=== PATIENT | female | born 1970 | race Caucasian/White ===

== ENCOUNTER → 2019-12-14 06:58 | Outpatient (CLI) | payer BC, SELFPAY ==
--- NOTE | ~2019-12-14 | XR_ITS ---
EXAMINATION: XR cervical spine 4-5V EXAM DATE: 12/14/2019 08:42 INDICATION: Neck pain. TECHNIQUE: Cervical spine frontal, lateral, lateral swimmers, and open-mouth odontoid projections. There is no prior study for comparison. FINDINGS: The vertebral bodies are aligned in the AP dimension. Vertebral body and disc heights are well-maintained. Evidence of mild to moderate cervical arthropathy. Probably some component of neural foraminal stenosis at C5-6 from uncovertebral joint disease. Lung apices are clear. The odontoid pro cess is intact. The lateral masses of C1 line up with C2. Prevertebral soft tissue and pre-dens spac e are within normal limits. IMPRESSION: 1. Mild to moderate cervical arthropathy. Reviewed, dictated and finalized at location B.
== END ==
DX: M54.2 Cervicalgia (principal)
CPT/HCPCS: 72050

== ENCOUNTER → 2020-07-27 15:57 | Outpatient (CLI) | payer BC, SELFPAY ==
--- NOTE | ~2020-07-27 | MM_ITS ---
EXAMINATION: MM screening [facility] BI w [facility] HISTORY: Screening mammogram TECHNIQUE: Craniocaudal and mediolateral oblique 3-D tomosynthesis images were obtained and synthetic 2-D images were generated. CAD analysis was submitted and interpreted. COMPARISON: No prior mammogram is available for comparison at this institution. BREAST PARENCHYMAL COMPOSITION: There are scattered areas of fibroglandular density. FINDINGS: There is no evidence of suspicious mass, calcification, or architectural distortion to sugg est malignancy in either breast. There has been no suspicious interval change. IMPRESSION: 1. No mammographic evidence of malignancy. 2. Recommend routine screening mammography in one year. BI-RADS Category 1: Negative Reviewed, dictated and finalized at location A.
== END ==
PROVIDERS: Visit Provider Obstetrics & Gynecology Gynecology
DX: Z12.31 Encounter for screening mammogram for malignant neoplasm of breast (principal)
CPT/HCPCS: 77063; 77067